=== PATIENT | male | born 1965 | race Caucasian/White ===

== ENCOUNTER 2020-09-10 09:22 | Day surgery (SDC) | payer BC, OTHER ==
[~2020-09-10] VITALS: Ht 177.8 cm; Wt 104.3 kg
--- NOTE | ~2020-09-10 | OP ---
PATIENT NAME: DANA VASQUEZ MEDICAL RECORD: [id number] :67 LOCATION:[facility] ADMISSION DATE: SURGEON: ANGY JIMÉNEZ MD DATE OF OPERATION: 09/10/2020 PREOPERATIVE DIAGNOSIS: Wound dehiscence, left hip, status post total hip arthroplasty. POSTOPERATIVE DIAGNOSIS: Wound dehiscence, left hip, status post total hip arthroplasty. PROCEDURE PERFORMED: 1. Incision and debridement of left hip wound (skin, subcutaneous tissue, fascia). 2. Closure of complex wound, left hip (15 cm). INDICATIONS FOR THE PROCEDURE: Mr. Vasquez is a 54-year-old male who is approximately 6 weeks status post left total hip arthroplasty. He has had an eschar over the hip incision since we saw him back for his 2-week followup that we have been monitoring and the superior portion of the wound is now opened. It appears to only involve the superficial tissues, but he is going to require operative debridement. I talked with him about this and need for surgery. Risks, benefits and alternatives of surgery were discussed with the patient including but not limited to pain, infection, bleeding, damage to surrounding structures and potential need for further surgery. All questions were answered and consent was obtained. DESCRIPTION OF PROCEDURE: The patient was met in the holding area where his identity and confirmation of procedure was performed. Left lower extremity was marked. He was taken to the operating room where he was placed supine on the operating table. Anesthesia was administered. Left hip was prepped and draped in a sterile fashion. The patient received preoperative antibiotics and timeout was performed before initiating the case. On initiation of the case, the wound was circumferentially excised. Proximal 10 cm were opened an additional 5 cm distally that still had a small eschar on it was opened as well. The tissue was excised full thickness and then transected along its base. The most superior portion of the wound did appear to extend down to the fatty layer around the fascia, but did not track any deeper, did not appear to involve the hip joint or the components. There were no rents in the fascia itself from the tissue repair during surgery. The wound was irrigated thoroughly with saline. Cultures were obtained following excision. Once the debridement was completed, we proceeded with closure of complex left hip wound measuring 15 cm. Deep tissues were closed with 2-0 PDS suture. The skin was closed with 3-0 nylon suture. This completed our procedure. A sterile dressing was placed. The patient was turned back over to anesthesia where he is awakened, extubated, and taken to the recovery room in stable condition. POSTOPERATIVE PLAN: The patient is going to return home with his family. He can weightbear as tolerated on the hip and may perform activity as tolerated, but just needs to be careful with any strenuous physical activities for the next few weeks to allow full healing of that hip incision. He will be on p.o. clindamycin x2 weeks. We will plan to see him back in clinic in 2 weeks for wound check and we will get x-rays of the hip at that time as well. COMPLICATIONS: None. OPERATIVE REPORT [id number] DANA VASQUEZ ESTIMATED BLOOD LOSS: 25 mL. ANESTHESIA: General. TRANSINT:[id number] Voice Confirmation ID: [id number] DOCUMENT ID: [id number] ANGY JIMÉNEZ MD CC: [id number] DICTATION DATE: 09/10/201819 SUPPLY ASSISTANT: 09/10/20 2245 [facility] [place] 09/10/[address] [id number]
[~2020-09-10 09:22] MED LIST: AVAPRO300 MG PO; CRESTOR20 MG PO; HYDROCHLOROTH12.5 M1 PO; PROSCAR5 MG PO; VOLTAREN25 MG PO
[2020-09-10 10:01] VITALS: BP 165/99; Ht 177.8 cm; Wt 104.3 kg
[2020-09-10 14:23] LABS: ERYTHROCYTE SEDIMENTATION RATE 29 mm/hr (0-20)
== END 2020-09-10 18:20 | disposition home or self-care (01) ==
LOC: D.OPS 09:22
PROVIDERS: ATTEND Orthopaedic Surgery
DX: T81.31XA Disruption of external operation (surgical) wound, not elsewhere classified, initial encounter (principal); M25.552 Pain in left hip; M16.12 Unilateral primary osteoarthritis, left hip